=== PATIENT | male | born 1945 ===

== ENCOUNTER 2018-11-19 13:00 | Emergency (ER) | payer OTHER ==
--- NOTE | 2018-11-19 13:22 | Emergency Department Report ---
Blank Doc - Documentation Documentation: 73 year y/o male referred from [facility] for abd pain that radiates to his chest. No PMH.
[2018-11-19 13:49] LABS: Basophils # (Auto) 0.1 K/mm3 (0.0-0.1); Basophils % (Auto) 0.9 % (0.0-1.8); Eosinophils # (Auto) 0.1 K/mm3 (0.0-0.4); Eosinophils % (Auto) 1.1 % (0.0-4.3); Hematocrit 46.2 % (35.5-45.6); Hemoglobin 16.1 gm/dl (11.8-15.2); Lymphocytes # (Auto) 1.5 K/mm3 (1.2-5.4); Lymphocytes % (Auto) 27.6 % (13.4-35.0); Mean Corpuscular HGB Conc 35 % (32-34); Mean Corpuscular Volume 88 fl (84-94); Monocytes # (Auto) 0.4 K/mm3 (0.0-0.8); Monocytes % (Auto) 6.7 % (0.0-7.3); Platelet Count 133 K/mm3 (140-440); Red Blood Count 5.22 M/mm3 (3.65-5.03); Red Cell Distribution Width 13.2 % (13.2-15.2)
[2018-11-19 14:01] LABS: Partial Thromboplastin Time 27.2 Sec. (24.2-36.6)
--- NOTE | 2018-11-19 14:05 | XRay Report ---
Abdominal series: History: Chest pain and abdominal pain. Findings: No acute cardiopulmonary findings. Stool in colon. No bowel distention or wall thickening. No radiopaque calculus or abnormal calcification. Impression Stool in colon. No bowel distention. No acute lung changes.
[2018-11-19 14:06] LABS: Alanine Aminotransferase 12 units/L (7-56); Albumin 4.1 g/dL (3.9-5); BUN/Creatinine Ratio 14; Blood Urea Nitrogen 10 mg/dL (9-20); Calcium 9.5 mg/dL (8.4-10.2); Hemolysis Index 10
[2018-11-19] MEDS ORDERED: TYLENOL PO ONE (15:21)
[2018-11-19] MEDS ORDERED: PEPCID IV ONE (15:21)
[2018-11-19] MEDS ORDERED: NACL 0.9% 500 ML 500 ML IV ONE (15:21)
--- NOTE | 2018-11-19 15:42 | Emergency Department Report ---
ED General Adult HPI - General Chief complaint: Abdominal Pain Stated complaint: SEVERE ABD PAIN Time Seen by Provider: 11/19/18 13:54 Source: family Mode of arrival: Ambulatory Limitations: Language Barrier - History of Present Illness Initial comments: wireless consultant: Isabell peraza This is a 73-year-old gentleman, known to this provider previously, reported history of diabetes, hypertension, presenting to the emergency room with a complaint of abdominal pain. The patient indicates the abdominal pain is migratory and present intermittently since June. It is occasionally in the left lower quadrant, right lower quadrant, bilateral upper quadrants. He reports it is worse in the morning and at night. He denies nausea, vomiting. He denies chest pain. He denies shortness of breath. He denies urinary symptoms. He indicates the pain o ccasionally radiates up to his bilateral lateral ribs. He makes no complaints of hematemesis of bright red blood per rectum. He reports that he's had an extensive workup in [place], and was at one point diagnosed with nervous colitis. He is currently taking constipation medication. -: Gradual, month(s) Location: abdomen Radiation: other Consistency: intermittent Improves with: none Worsens with: none - Related Data Home Medications Medication Instructions Recorded Confirmed Last Taken Docusate Sodium [Colace] 200 mg PO QHS 11/19/18 11/19/18 11/18/18 Hyoscyamine Sulfate [Hyoscyamine 0.125 mg PO Q4H PRN 11/19/18 11/19/18 11/18/18 Rapdis 0.125 mg] Lisinopril [Zestril] 5 mg PO QDAY 11/19/18 11/19/18 11/18/18 Previous Rx's Medication Instructions Recorded Last Taken Type Acetaminophen [Acetaminophen TAB] 500 mg PO Q6HR PRN #30 tablet 11/19/18 Unknown Rx Famotidine [Pepcid] 20 mg PO BID #10 tablet 11/19/18 Unknown Rx Allergies Allergy/AdvReac Type Severity Reaction Status Date / Time No Known Allergies Allergy Unverified 11/19/18 13:03 ED Review of Systems ROS: Stated complaint: SEVERE ABD PAIN Other details as noted in HPI Constitutional: denies: fever Eyes: denies: eye discharge ENT: denies: epistaxis Respiratory: denies: cough Cardiovascular: denies: chest pain Gastrointestinal: abdominal pain, constipation. denies: nausea, vomiting Genitourinary: denies: urgency, dysuria, testicular pain Musculoskeletal: back pain Skin: denies: lesions Neurological: denies: headache ED Past Medical Hx - Past Medical History Hx Diabetes: Yes - Surgical History Past Surgical History?: No - Social History Smoking Status: Never Smoker Substance Use Type: None - Medications Home Medications: Home Medications Medication Instructions Recorded Confirmed Last Taken Type Acetaminophen [Acetaminophen TAB] 500 mg PO Q6HR PRN #30 tablet 11/19/18 Unknown Rx Docusate Sodium [Colace] 200 mg PO QHS 11/19/18 11/19/18 11/18/18 History Famotidine [Pepcid] 20 mg PO BID #10 tablet 11/19/18 Unknown Rx Hyoscyamine Sulfate [Hyoscyamine 0.125 mg PO Q4H PRN 11/19/18 11/19/18 11/18/18 History Rapdis 0.125 mg] Lisinopril [Zestril] 5 mg PO QDAY 11/19/18 11/19/18 11/18/18 History ED Physical Exam - General Limitations: Language Barrier General appearance: alert, in no apparent distress - Head Head exam: Present: atraumatic, normocephalic - Eye Eye exam: Present: normal appearance, EOMI. Absent: nystagmus - ENT ENT exam: Present: normal exam, normal orophraynx, mucous membranes moist, no rmal external ear exam - Neck Neck exam: Present: normal inspection, full ROM. Absent: tenderness, meningismus - Respiratory Respiratory exam: Present: normal lung sounds bilaterally. Absent: respiratory distress - Cardiovascular Cardiovascular Exam: Present: regular rate, normal rhythm, normal heart sounds. Absent: bradycardia, tachycardia, irregular rhythm, systolic murmur, diastolic murmur, rubs, gallop - GI/Abdominal GI/Abdominal exam: Present: soft. Absent: distended, tenderness, guarding, rebound, rigid, pulsatile mass - Rectal Rectal exam: Present: deferred - Extremities Exam Extremities exam: Present: normal inspection, full ROM, other (2+ pulses noted in the bilateral upper, lower extremities. Compartments soft. No long bony tenderness. The pelvis is stable.). Absent: pedal edema, joint swelling, calf tenderness - Back Exam Back exam: Present: normal inspection, full ROM. Absent: tenderness, CVA tenderness (R), paraspinal tenderness, vertebral tenderness - Neurological Exam Neurological exam: Present: alert, other (there is no facial droop. The tongue is midline. The extraocular movements are intact bilaterally. There is 5 out of 5 strength in the bilateral upper, lower extremities.) - Psychiatric Psychiatric exam: Present: normal affect, normal mood - Skin Skin exam: Present: warm, dry, intact, normal color. Absent: rash ED Course Vital Signs 11/19/18 11/19/18 11/19/18 13:18 15:00 17:46 Temperature 97.8 F Pulse Rate 91 H 78 72 Respiratory 16 16 20 Rate Blood Pressure 135/82 Blood Pressure 154/91 [Left] O2 Sat by Pulse 97 98 98 Oximetry 11/19/18 11/19/18 11/19/18 18:00 19:14 19:15 Temperature 98.3 F Pulse Rate 71 73 Respiratory 20 17 Rate Blood Pressure 146/89 146/89 Blood Pressure 169/97 [Left] O2 Sat by Pulse 98 98 99 Oximetry 11/19/18 11/19/18 20:00 21:00 Temperature Pulse Rate 77 79 Respiratory 16 18 Rate Blood Pressure 171/99 167/97 Blood Pressure [Left] O2 Sat by Pulse 98 97 Oximetry - Reevaluation(s) Reevaluation #1: 11/19/18 16:04 Differential diagnosis, including not limited to: Constipation, colitis, diverticulitis, volvulus, urinary tract infection, intra-abdominal infection, pneumonia Assessment and plan: 73-year-old gentleman, very well appearing, no abdominal tenderness, unremarkable vital signs, with reported complaints of abdominal pain since June. Suspect constipation. Laboratory studies reviewed and appreciated. No endorsement of chest pain, shortness of breath. He is not tachycardic. He is not hypoxic. I find the patient to be low risk by well's criteria. D-dimer negative. We will treat his symptoms. CT scan of the abdomen and pelvis has been ordered. He is resting currently, and his stretcher, and appears to be quite comfortable. Reevaluation #2: 11/19/18 18:24 Vital signs unremarkable. Patient appears to be stable. No active vomiting. Patient appears comfortable. We are awaiting CT scan. Reevaluation #3: 11/19/18 19:54 Patient resting comfortably, on multiple re-evaluations. CT scan performed. Interpretation pending. Care will be transferred to the oncoming physician, Dr. Yifan Stephen, to follow up on CT scan. I anticipate an unremarkable study, and if negative for acute disease, would recommend discharge with outpatient follow-up. ED Medical Decision Making - Lab Data Result diagrams: 11/19/18 13:39 11/19/18 13:39 Vital Signs 11/19/18 13:18 Temperature 97.8 F Pulse Rate 91 H Respiratory 16 Rate Blood Pressure 135/82 O2 Sat by Pulse 97 Oximetry Lab Results 11/19/18 11/19/18 11/19/18 Range/Units 13:39 13:39 13:39 WBC 5.5 (4.5-11.0) K/mm3 RBC 5.22 H (3.65-5.03) M/mm3 Hgb 16.1 H (11.8-15.2) gm/dl Hct 46.2 H (35.5-45.6) % MCV 88 (84-94) fl MCH 31 (28-32) pg MCHC 35 H (32-34) % RDW 13.2 (13.2-15.2) % Plt Count 133 L (140-440) K/mm3 Lymph % (Auto) 27.6 (13.4-35.0) % Lucas % (Auto) 6.7 (0.0-7.3) % Eos % (Auto) 1.1 (0.0-4.3) % Baso % (Auto) 0.9 (0.0-1.8) % Lymph # 1.5 (1.2-5.4) K/mm3 Lucas # 0.4 (0.0-0.8) K/mm3 Eos # 0.1 (0.0-0.4) K/mm3 Baso # 0.1 (0.0-0.1) K/mm3 Seg Neutrophils % 63.7 (40.0-70.0) % Seg Neutrophils # 3.5 (1.8-7.7) K/mm3 PT 13.8 (12.2-14.9) Sec. INR 1.00 (0.87-1.13) APTT 27.2 (24.2-36.6) Sec. D-Dimer (0-234) ng/mlDDU Sodium 139 (137-145) mmol/L Potassium 4.0 (3.6-5.0) mmol/L Chloride 99.7 (98-107) mmol/L Carbon Dioxide 27 (22-30) mmol/L Anion Gap 16 mmol/L BUN 10 (9-20) mg/dL Creatinine 0.7 L (0.8-1.5) mg/dL Estimated GFR > 60 ml/min BUN/Creatinine Ratio 14 % Glucose 233 H (75-100) mg/dL Calcium 9.5 (8.4-10.2) mg/dL Total Bilirubin 0.80 (0.1-1.2) mg/dL AST 13 (5-40) units/L ALT 12 (7-56) units/L Alkaline Phosphatase 84 (35-129) units/L Troponin T < 0.010 (0.00-0.029) ng/mL Total Protein 6.8 (6.3-8.2) g/dL Albumin 4.1 (3.9-5) g/dL Albumin/Globulin Ratio 1.5 % Lipase 30 (13-60) units/L /09/08 Range/Units Unknown WBC (4.5-11.0) K/mm3 RBC (3.65-5.03) M/mm3 Hgb (11.8-15.2) gm/dl Hct (35.5-45.6) % MCV (84-94) fl MCH (28-32) pg MCHC (32-34) % RDW (13.2-15.2) % Plt Count (140-440) K/mm3 Lymph % (Auto) (13.4-35.0) % Lucas % (Auto) (0.0-7.3) % Eos % (Auto) (0.0-4.3) % Baso % (Auto) (0.0-1.8) % Lymph # (1.2-5.4) K/mm3 Lucas # (0.0-0.8) K/mm3 Eos # (0.0-0.4) K/mm3 Baso # (0.0-0.1) K/mm3 Seg Neutrophils % (40.0-70.0) % Seg Neutrophils # (1.8-7.7) K/mm3 PT (12.2-14.9) Sec. INR (0.87-1.13) APTT (24.2-36.6) Sec. D-Dimer < 135 (0-234) ng/mlDDU Sodium (137-145) mmol/L Potassium (3.6-5.0) mmol/L Chloride (98-107) mmol/L Carbon Dioxide (22-30) mmol/L Anion Gap mmol/L BUN (9-20) mg/dL Creatinine (0.8-1.5) mg/dL Estimated GFR ml/min BUN/Creatinine Ratio % Glucose (75-100) mg/dL Calcium (8.4-10.2) mg/dL Total Bilirubin (0.1-1.2) mg/dL AST (5-40) units/L ALT (7-56) units/L Alkaline Phosphatase (35-129) units/L Troponin T (0.00-0.029) ng/mL Total Protein (6.3-8.2) g/dL Albumin (3.9-5) g/dL Albumin/Globulin Ratio % Lipase (13-60) units/L - EKG Data -: EKG Interpreted by Il EKG shows normal: sinus rhythm Rate: normal - EKG Data When compared to previous EKG there are: previous EKG unavailable 11/19/18 16:01 This EKG shows a normal sinus rhythm, 85 bpm, left axis deviation, left anterior fascicular block, QTC within normal limits, atrial enlargement, abnormal EKG, no prior for comparison, not consistent with ST elevation myocardial infarction. - Radiology Data Radiology results: report reviewed, image reviewed Print Report Referring Physician: CRISTIAN MACE Patient Name: EDITH LEDEZMA Date of : 1945 Sex: Male Report Date: 2018-11-19 Report Status: Finalized Findings [facility] [address] [place] [address] XRay Report Signed Patient: EDITH LEDEZMA MR#: [id number] : 1945 Acct:[id number] Age/Sex: 73 / M ADM Date: 11/19/18 Loc: ED Attending Dr: Ordering Physician: CRISTIAN MACE MD Date of Service: 11/19/18 Procedure(s): XR abd series w cxr 1V Accession Number(s): [id number] cc: CRISTIAN MACE MD Fluoro Time In Minutes: Abdominal series: History: Chest pain and abdominal pain. Findings: No acute cardiopulmonary findings. Stool in colon. No bowel distention or wall thickening. No radiopaque calculus or abnormal calcification. Impression Stool in colon. No bowel distention. No acute lung changes. Transcribed By: PTP Dictated By: GERMAIN KAMARA MD Electronically Authenticated By: GERMAIN KAMARA MD Signed Date/Time: 11/19/18 1344 Print Report Referring Physician: CRISTIAN MACE Patient Name: EDITH LEDEZMA Date of : 1945 Sex: Male Report Date: 2018-11-19 Report Status: Finalized Findings [place] [id number] Cat Scan Report Signed Patient: EDITH LEDEZMA MR#: [id number] : 1945 Acct:[id number] Age/Sex: 73 / M ADM Date: 11/19/18 Loc: ED Attending Dr: Kunal olsen Physician: CRISTIAN MACE MD Date of Service: 11/19/18 Procedure(s): CT abdomen pelvis w con Accession Number(s): [id number] cc: CRISTIAN MACE MD PROCEDURE: CT ABDOMEN PELVIS W CON TECHNIQUE: Computerized axial tomography of the abdomen and pelvis was performed after the IV injection of iodinated nonionic contrast. CT DOSE LENGTH PRODUCT: 1627.9 mGycm HISTORY: abd pain rib pain COMPARISONS: None . FINDINGS: Visualized lower thorax: No significant abnormality. Liver: Subcentimeter low attenuation lesions in the liver are likely related to cysts. Spleen: Spleen measures 16 cm craniocaudal. Gallbladder and biliary system: Gallbladder is present. Pancreas: Normal. Adrenals: Normal. Kidneys: Exophytic 19 mm cyst projects off the left kidney lower pole. No hydronephrosis. GI tract: Appendix is visualized and does not appear inflamed. No bowel obstruction or inflammation . Lymph nodes and mesentery: Normal. Vasculature: Normal.. Bladder: Normal. Reproductive organs: Prostate calci fications. Peritoneum: No free fluid. Musculoskeletal structures: Degenerative disc changes of the lumbar spine. Other: None . IMPRESSION: No acute abnormality is seen. Other findings as above . This document is electronically signed by Shamika Green MD., Nov 19 2018 08:55:34 PM ET Transcribed By: [facility] Dictated By: SHAMIKA GREEN M.D. Electronically Authenticated By: SHAMIKA GREEN M.D. Signed Date/Time: 11/19/182056 Critical care attestation.: If time is entered above; I have spent that time in minutes in the direct care of this critically ill patient, excluding procedure time. ED Disposition Clinical Impression: Abdominal pain Disposition: DC-01 TO HOME OR SELFCARE Is pt being admited?: No Does the pt Need Aspirin: No Condition: Good Instructions: Abdominal Pain (ED) Additional Instructions: Do not take metformin for the next 48 hours, if patient takes this medication. Take the pain medications as needed/directed. Follow up with a primary care doctor within the next 10-14 days. Return to the emergency room right away with new pain, worsened pain, migration of pain, projectile vomiting, change in mental status, confusion, inability to tolerate liquid feeds, new, worsening or different symptoms. Drink 6-8 cups of water per day for the next 30-45 days. Consume plenty of fruits, fiber, vegetables. Avoid consumption of heavy, spicy foods, simple carbohydrates, and starches. No tome metformina ab las prximas 48 horas, si el paciente rebecca shanti medicamento. [place] los medicamentos para el dolor segn sea necesario / indicado. Jay un seguimiento con un mdico de atencin primaria en los prximos 10 a 14 hooper. Regrese a la marco antonio de emergencias de inmediato con dolor nuevo, dolor empeorado, migracin del vmito, vmitos con proyectiles, cambios en el estado mental, confusin, incapacidad para tolerar alimentos lquidos, sntomas nuevos, que empeoran o diferentes. Essence 6-8 tazas de agua por da ab los prximos 30-45 hooper. Consuma abundantes frutas, fibra, verduras. Evite el consumo de comidas pesadas y picantes, carbohidratos simples y almidones. Prescriptions: Acetaminophen [Acetaminophen TAB] 500 mg PO Q6HR PRN #30 tablet PRN Reason: Pain , Severe (7-10) Famotidine [Pepcid] 20 mg PO BID #10 tablet Referrals: CLINICA,LATHAM [Other] - 3-5 Days
[2018-11-19 16:10] LABS: Bilirubin,Urine NEG (Negative); Blood,Urine NEG (Negative); Color,Urine Yellow (Yellow); Mucus,Urine FEW /HPF; Protein,Urine <15 mg/dL mg/dL (Negative); RBC,Urine < 1.0 /HPF (0.0-6.0); Urobilinogen,Urine < 2.0 mg/dL (<2.0)
--- NOTE | 2018-11-19 20:57 | Cat Scan Report ---
PROCEDURE: CT ABDOMEN PELVIS W CON TECHNIQUE: Computerized axial tomography of the abdomen and pelvis was performed after the IV inject ion of iodinated nonionic contrast. CT DOSE LENGTH PRODUCT: 1627.9 mGycm HISTORY: abd pain rib pain COMPARISONS: None . FINDINGS: Visualized lower thorax: No significant abnormality. Liver: Subcentimeter low attenuation lesions in the liver are likely related to cysts. Spleen: Spleen measures 16 cm craniocaudal. Gallbladder and biliary system: Gallbladder is present. Pancreas: Normal. Adrenals: Normal. Kidneys: Exophytic 19 mm cyst projects off the left kidney lower pole. No hydronephrosis. GI tract: Appendix is visualized and does not appear inflamed. No bowel obstruction or inflammation . Lymph nodes and mesentery: Normal. Vasculature: Normal.. Bladder: Normal. Reproductive organs: Prostate calcifications. Peritoneum: No free fluid. Musculoskeletal structures: Degenerative disc changes of the lumbar spine. Other: None . IMPRESSION: No acute abnormality is seen. Other findings as above . This document is electronically signed by Shamika Green MD., Nov 19 2018 08:55:34 PM ET
[2018-11-19 22:00] VITALS: BP 167/97
== END 2018-11-19 21:30 | disposition home or self-care (01) ==
LOC: ED 13:00
DX: R10.9 Unspecified abdominal pain (principal); E11.9 Type 2 diabetes mellitus without complications
CPT/HCPCS: 36415; 74022; 74177; 80053; 81001; 83690; 84484; 85025; 85379; 85610; 85730; 93005; 93010; 96374; 99285; J7040; Q9967